=== PATIENT | male | born 1990 | race Caucasian/White ===

== ENCOUNTER 2025-04-25 15:36 | Emergency (ER) | payer SELFPAY ==
[~2025-04-25] VITALS: Ht 172.7 cm; Wt 69.4 kg
[2025-04-25 16:16] VITALS: PULSE 69; RESP 18; TEMP 97.2; O2SAT 100
[2025-04-25] MEDS ORDERED: PREDNISONE20 MG PO (18:32)
[2025-04-25] MEDS ORDERED: AZITHROMYCIN250 MG PO (18:32)
[2025-04-25] MEDS ORDERED: VENTOLIN HFA18 GM INH (18:32)
== END 2025-04-25 19:00 | disposition home or self-care (01) ==
LOC: ER 17:08
DX: R05.9 Cough, unspecified (principal); Z87.891 Personal history of nicotine dependence; F14.11 Cocaine abuse, in remission
CPT/HCPCS: 71046; 99283